=== PATIENT | male | born 1940 | race Caucasian/White ===

== ENCOUNTER 2021-11-05 09:13 | Emergency (ER) | payer MEDICARE, OTHER ==
[~2021-11-05] VITALS: Ht 182.9 cm; Wt 78.9 kg
[2021-11-05] MEDS ORDERED: MULTI-VITAMIN1 EAC2 (10:01)
[2021-11-05] MEDS ORDERED: VITAMIN D325 MC3 PO (10:02)
[2021-11-05] MEDS ORDERED: CALCIUM 500 MG1 EAC8 PO (10:02)
[2021-11-05] MEDS ORDERED: TAMSULOSIN HCL0.4 M1 PO (10:02)
[2021-11-05] MEDS ORDERED: EUTHYROX50 MC1 PO (10:03)
== END 2021-11-05 10:38 | disposition home or self-care (01) ==
LOC: ER 09:13
DX: S61.213A Laceration without foreign body of left middle finger without damage to nail, initial encounter (principal); W23.0XXA Caught, crushed, jammed, or pinched between moving objects, initial encounter; Z23 Encounter for immunization
CPT/HCPCS: 90714